=== PATIENT | male | born 1945 | race Caucasian/White ===

== ENCOUNTER 2022-08-17 23:00 | Inpatient (IN) | payer MEDICARE, MEDICAID ==
[~2022-08-17] VITALS: Ht 162.6 cm; Wt 73.5 kg
[2022-08-18 01:10] LABS: BASOPHILS % 0.5 % (0.0-2.0); EOSINOPHILS % 1.5 % (0.0-5.0); HEMATOCRIT. 34.7 % (42.0-52.0); HEMOGLOBIN. 11.8 g/dL (14.0-18.0); LYMPHOCYTES % 13.6 % (20.0-50.0); MEAN CORPUSCULAR HEMOGLOBIN 28.3 pg (28.0-32.0); MEAN CORPUSCULAR VOLUME 83.3 fL (80.0-94.0); MEAN PLATELET VOLUME 6.8 fl (7.4-10.4); MONOCYTES % 8.8 % (2.0-8.0); NEUTROPHILS % 75.6 % (40.0-76.0); PLATELET 274 x1000/uL (130-400); RED BLOOD CELL COUNT 4.17 mill/uL (4.7-6.1); RED CELL DISTRIBUTION WIDTH 15.4 % (11.6-14.6)
[2022-08-18 01:15] LABS: CHLORIDE 112 mEq/L (98-107)
[2022-08-18] MEDS ORDERED: LABETALOL 5MG/ML SYR 20 MG/4 ML SYRINGE IV NR (02:45)
[2022-08-18] MEDS ORDERED: HYDRALAZINE 20MG/ML VIAL IV ONE (05:15)
[2022-08-18] MEDS ORDERED: IOHEXOL-350 100 ML BOTTLE ONE (06:14)
[2022-08-18 07:40] VITALS: BP 121/70
[2022-08-18] MEDS ORDERED: METO25TA6 PO (11:22)
[2022-08-18] MEDS ORDERED: ASPI-1497 PO (11:22)
[2022-08-18] MEDS ORDERED: TICA60TA PO (11:22)
[2022-08-18] MEDS ORDERED: LOSA100T32 PO (11:22)
[2022-08-18] MEDS ORDERED: HYDR100T26 PO (11:22)
[2022-08-18 12:00] VITALS: BP 209/68
[2022-08-18] MEDS ORDERED: ACETAMINOPHEN 325MG TABLET PO PRN ×2 (12:00→12:15)
[2022-08-18] MEDS ORDERED: ONDANSETRON HCL 4MG/2ML INJ IV PRN (12:00)
[2022-08-18] MEDS ORDERED: IPRATROPIUM/ALBUTEROL 0.5-3(2.5)MG/3ML NEB HHN PRN (12:00)
[2022-08-18] MEDS ORDERED: DOCUSATE SODIUM 100MG CAPSULE PO PRN (12:15)
[2022-08-18] MEDS ORDERED: CLONIDINE 0.1MG TABLET PO PRN (12:15)
[2022-08-18] MEDS: LOSARTAN POTASSIUM 100 MG TABLET PO SCH ×2 (12:43→20:39)
[2022-08-18] MEDS: AMLODIPINE 10MG TABLET PO SCH (14:19)
[2022-08-18] MEDS: TRIAMTERENE/HCTZ 37.5/25MG TABLET PO SCH (14:19)
[2022-08-18] MEDS: TICAGRELOR 90 MG TABLET PO SCH (14:19)
[2022-08-18] MEDS: HYDRALAZINE HCL 100MG TABLET PO SCH ×2 (14:20→20:40)
[2022-08-18] MEDS: ASPIRIN 81MG TABLET PO SCH (14:20)
[2022-08-18 16:00] VITALS: BP 215/73
[2022-08-18 20:36] VITALS: BP 183/61
[2022-08-18] MEDS ORDERED: METOPROLOL TARTRATE 25MG TABLET PO SCH (21:00)
[2022-08-18 22:35] LABS: CREATINE KINASE 100 IU/L (39-308); CREATINE KINASE MB FRACTION 2.8 ng/mL (0.5-3.6)
[2022-08-19] VITALS: BP 135/54
[2022-08-19 04:00] VITALS: BP 140/62
[2022-08-19] MEDS: HYDRALAZINE HCL 100MG TABLET PO SCH ×2 (05:13→13:54)
[2022-08-19 08:00] VITALS: BP 154/50
[2022-08-19 08:01] LABS: BASOPHILS % 0.5 % (0.0-2.0); EOSINOPHILS % 3.5 % (0.0-5.0); HEMATOCRIT. 33.7 % (42.0-52.0); HEMOGLOBIN. 11.5 g/dL (14.0-18.0); LYMPHOCYTES % 11.8 % (20.0-50.0); MEAN CORPUSCULAR HEMOGLOBIN 28.8 pg (28.0-32.0); MEAN CORPUSCULAR VOLUME 84.2 fL (80.0-94.0); MEAN PLATELET VOLUME 7.1 fl (7.4-10.4); MONOCYTES % 8.8 % (2.0-8.0); NEUTROPHILS % 75.4 % (40.0-76.0); PLATELET 266 x1000/uL (130-400); RED CELL DISTRIBUTION WIDTH 15.6 % (11.6-14.6)
[2022-08-19 08:16] LABS: CREATINE KINASE MB FRACTION 2.4 ng/mL (0.5-3.6)
[2022-08-19] MEDS: LOSARTAN POTASSIUM 100 MG TABLET PO SCH (09:10)
[2022-08-19] MEDS: AMLODIPINE 10MG TABLET PO SCH (09:10)
[2022-08-19] MEDS: TICAGRELOR 90 MG TABLET PO SCH (09:10)
[2022-08-19] MEDS: ASPIRIN 81MG TABLET PO SCH (09:10)
[2022-08-19] MEDS: TRIAMTERENE/HCTZ 37.5/25MG TABLET PO SCH (09:12)
[2022-08-19 15:49] VITALS: BP 140/60
[2022-08-19] MEDS ORDERED: METOPROLOL TARTRATE 50MG TABLET PO SCH (21:00)
== END 2022-08-19 17:47 | disposition home or self-care (01) | DRG 305 ==
LOC: ER 23:00 → 7WST 08-18 04:07
PROVIDERS: ADMIT Internal Medicine; ATTEND Internal Medicine
DX: I16.0 Hypertensive urgency (principal); R27.0 Ataxia, unspecified; I11.0 Hypertensive heart disease with heart failure; I25.10 Atherosclerotic heart disease of native coronary artery without angina pectoris; I44.7 Left bundle-branch block, unspecified; J43.9 Emphysema, unspecified; G31.9 Degenerative disease of nervous system, unspecified; E78.5 Hyperlipidemia, unspecified; E11.9 Type 2 diabetes mellitus without complications; I50.9 Heart failure, unspecified; J84.10 Pulmonary fibrosis, unspecified; Z92.3 Personal history of irradiation; Z87.891 Personal history of nicotine dependence; Z98.61 Coronary angioplasty status; Z79.4 Long term (current) use of insulin
CPT/HCPCS: 36415; 71045; 71275; 80048; 80053; 80061; 82550; 82553; 83735; 84484; 85025; 93005; 93306; 93970; 99291; J0360; J3490; Q9967; J8499

== ENCOUNTER 2024-04-19 07:54 | Emergency (ER) | payer MEDICARE, MEDICAID ==
[~2024-04-19] VITALS: Ht 162.6 cm; Wt 72.5 kg
[~2024-04-19 07:54] MED LIST: ASPI-1497 PO; HYDR100T11 PO; LOSA100T33 PO; METO25TA6 PO; TICA60TA PO
[2024-04-19 08:08] VITALS: O2SAT 97
[2024-04-19] MEDS: CLONIDINE 0.1MG TABLET PO ONE (09:06)
[2024-04-19] MEDS: ACETAMINOPHEN 325MG TABLET PO ONE (09:07)
[2024-04-19 09:10] LABS: BASOPHILS % 0.4 % (0.0-2.0); EOSINOPHILS % 1.1 % (0.0-5.0); HEMATOCRIT. 37.8 % (42.0-52.0); HEMOGLOBIN. 12.5 g/dL (14.0-18.0); LYMPHOCYTES % 15.3 % (20.0-50.0); MEAN CORPUSCULAR HEMOGLOBIN 28.6 pg (28.0-32.0); MEAN CORPUSCULAR HGB CONC 32.9 g/dL (31.0-37.0); MEAN CORPUSCULAR VOLUME 86.7 fL (80.0-94.0); MEAN PLATELET VOLUME 7.2 fl (7.4-10.4); MONOCYTES % 7.8 % (2.0-8.0); NEUTROPHILS % 75.4 % (40.0-76.0); PLATELET 272 x1000/uL (130-400); RED BLOOD CELL COUNT 4.36 mill/uL (4.7-6.1); RED CELL DISTRIBUTION WIDTH 15.6 % (11.6-14.6); WHITE BLOOD COUNT 5.8 x1000/uL (4.5-11.0)
[2024-04-19 09:23] LABS: CHLORIDE 109 mEq/L (98-107); SODIUM 142 mEq/L (136-145)
[2024-04-19 09:24] LABS: CARBON DIOXIDE 26 mEq/L (21-32)
[2024-04-19 09:25] LABS: CALCIUM 9.3 mg/dL (8.7-10.4)
[2024-04-19 09:30] LABS: GLUCOSE 159 mg/dL (70-105); TROPONIN I HIGH SENSITIVITY 30 ng/L (3.0-53); UREA NITROGEN BLOOD 17 mg/dL (9-23)
[2024-04-19 09:31] LABS: ALANINE AMINOTRANSFERASE 15 IU/L (10-49); ASPARTATE AMINOTRANSFERASE 19 IU/L (<34)
[2024-04-19 09:32] LABS: ALBUMIN 4.3 g/dL (3.2-4.8); BILIRUBIN DIRECT 0.2 mg/dL (<=3.0); BILIRUBIN TOTAL 0.5 mg/dL (0.1-1.0); PROTEIN TOTAL 6.9 g/dL (6.0-8.3)
[2024-04-19] MEDS ORDERED: AMLO5TAB88 MT (12:56)
[2024-04-19 13:21] VITALS: BP 154/59; PULSE 54; RESP 18; TEMP 36.44736; O2SAT 96
== END 2024-04-19 13:23 | disposition home or self-care (01) ==
LOC: ER 08:25
DX: I10 Essential (primary) hypertension (principal); R07.89 Other chest pain; R51.9 Headache, unspecified; Z79.899 Other long term (current) drug therapy; Z79.82 Long term (current) use of aspirin; Z79.02 Long term (current) use of antithrombotics/antiplatelets
CPT/HCPCS: 36415; 80048; 80076; 83880; 84484; 85025; 93005; 99291